=== PATIENT | female | born 1980 | race Caucasian/White ===

== ENCOUNTER 2016-11-27 15:39 | Emergency (ER) | payer OTHER ==
[~2016-11-27] VITALS: Ht 165.1 cm; Wt 67.1 kg
[2016-11-27] MEDS ORDERED: DOXY100C PO (15:56)
[2016-11-27] MEDS ORDERED: BACITRACIN OINT 30GM TOP ONE (17:00)
[2016-11-27] MEDS ORDERED: BACI500O8 TOP (17:01)
[2016-11-27] MEDS ORDERED: NORC5TAB PO (17:01)
[2016-11-27 17:14] VITALS: BP 134/70
[2016-11-27] MEDS ORDERED: NEOSPORIN TOP OINT 15GM TOP ONE (17:15)
== END 2016-11-27 17:30 | disposition home or self-care (01) ==
LOC: M ED 17:13
DX: T20.10XA Burn of first degree of head, face, and neck, unspecified site, initial encounter (principal); T31.0 Burns involving less than 10% of body surface; F17.210 Nicotine dependence, cigarettes, uncomplicated; X11.8XXA Contact with other hot tap-water, initial encounter; Y92.090 Kitchen in other non-institutional residence as the place of occurrence of the external cause; Y93.G3 Activity, cooking and baking; Y99.9 Unspecified external cause status